=== PATIENT | female | born 1970 | race Caucasian/White ===

== ENCOUNTER 2019-09-11 11:35 | Emergency (ER) | payer BC ==
[~2019-09-11] VITALS: Ht 180.3 cm; Wt 86.2 kg
[2019-09-11 11:47] VITALS: BP 115/65
[2019-09-11] MEDS ORDERED: CEPHALEXIN500 M1 PO (12:32)
== END 2019-09-11 12:47 | disposition home or self-care (01) ==
LOC: ED 11:35
DX: S61.411A Laceration without foreign body of right hand, initial encounter (principal); X58.XXXA Exposure to other specified factors, initial encounter; Y93.89 Activity, other specified; Y92.89 Other specified places as the place of occurrence of the external cause; Y99.8 Other external cause status